=== PATIENT | female | born 1990 | race Caucasian/White ===

== ENCOUNTER → 2018-03-08 18:43 | Outpatient (CLI) | payer OTHER, SELFPAY ==
[2018-03-13 16:58] LABS: HPV Reflexed? NOT INDICATED
== END ==
PROVIDERS: Family Provider Family Medicine; PCP Family Medicine; Visit Provider Obstetrics & Gynecology
DX: Z12.4 Encounter for screening for malignant neoplasm of cervix (principal); Z12.72 Encounter for screening for malignant neoplasm of vagina
CPT/HCPCS: 88175; G0145

== ENCOUNTER → 2019-10-03 09:33 | Outpatient (CLI) | payer OTHER, SELFPAY ==
[2019-10-03 10:52] LABS: Follicle Stimulating Hormone 5.3 mIU/mL; Prolactin 8.1 ng/mL; Thyroid Stim Hormone (TSH) 1.07 uIU/mL (0.358-3.74)
== END ==
PROVIDERS: Family Provider Family Medicine; PCP Family Medicine; Visit Provider Obstetrics & Gynecology
DX: N91.2 Amenorrhea, unspecified (principal); N92.6 Irregular menstruation, unspecified; R63.5 Abnormal weight gain
CPT/HCPCS: 36415; 83001; 83002; 84146; 84443

== ENCOUNTER → 2020-06-30 14:54 | Outpatient (CLI) | payer OTHER, SELFPAY ==
[2017-09-01 23:33] VITALS: BMI 41.8
[2020-06-30 16:33] LABS: Progesterone Level 1.07 ng/mL (See Comment)
[2020-06-30 16:35] LABS: Hemoglobin A1c 5.7 % (3.8-5.6)
[2020-06-30 16:38] LABS: AST(SGOT) 17 U/L (15-37); Alanine Aminotransfer ALT/SGPT 37 U/L (13-56); Albumin, Serum 3.8 g/dL (3.2-5.0); Alkaline Phosphatase 77 U/L (45-117); Anion Gap 6 (5-15); BUN 12 mg/dL (7-18); BUN/Creat Ratio 15.4 RATIO (10-20); Calcium,Total 8.5 mg/dL (8.5-10.1); Chloride 103 mmol/L (98-107); Creatinine, Serum 0.78 mg/dL (0.55-1.02); EST Glomerular Filtration Rate 92 mL/min (>60); Est Glom Filt Rate - Afr Amer 112 mL/min (>60); Globulin 3.7 g/dL (2.2-4.2); Glucose 90 mg/dL (74-106); Potassium 3.7 mmol/L (3.5-5.1); Protein, Total 7.5 g/dL (6.4-8.2); Sodium Level 138 mmol/L (136-145); Thyroid Stim Hormone (TSH) 1.13 uIU/mL (0.358-3.74)
== END ==
PROVIDERS: PCP Family Medicine; Visit Provider Obstetrics & Gynecology
DX: E28.2 Polycystic ovarian syndrome (principal); Z51.81 Encounter for therapeutic drug level monitoring; F41.1 Generalized anxiety disorder; E88.81 Metabolic syndrome and other insulin resistance
CPT/HCPCS: 36415; 80053; 83036; 84144; 84403; 84443

== ENCOUNTER → 2020-08-07 08:42 | Outpatient (CLI) | payer OTHER, SELFPAY ==
[2020-08-07 12:56] LABS: Progesterone Level 11.26 ng/mL (See Comment)
== END ==
PROVIDERS: PCP Family Medicine; Visit Provider Obstetrics & Gynecology
DX: E28.2 Polycystic ovarian syndrome (principal); Z51.81 Encounter for therapeutic drug level monitoring
CPT/HCPCS: 36415; 84144

== ENCOUNTER → 2020-09-01 14:08 | Outpatient (CLI) | payer OTHER, SELFPAY ==
[2020-09-01 17:30] LABS: Absolute Lymphocyte Count 2.08 X10^3/uL (0.83-4.51); Absolute Neutrophil Count 6.9 X10^3/uL (2.0-7.7); Basophil# 0.05 X10^3/uL; Basophil% 0.5 % (0-1); Eosinophil# 0.09 X10^3/uL; Eosinophils% 0.9 % (0-5); Hematocrit 37.3 % (37-47); Hemoglobin 12.2 g/dL (12.0-15.0); Lymphocyte # 2.08 X10^3/ul (4.0); Lymphocyte % 21.7 % (19-41); Mean Corp Hgb Conc 32.7 g/dL (32-36); Mean Corpuscular Hgb 28.4 pg (27.0-32.0); Mean Corpuscular Volume 86.9 fL (81-99); Mean Platelet Vol. 10.8 fl (6.2-12.0); Monocyte# 0.48 X10^3/uL; NRBC Flagged by Analyzer 0 % (0-5); Neutrophil # 6.85 X10^3/uL (2.7-7.7); Neutrophil % 71.6 % (47-70); Platelet Count 224 K/mm3 (150-450); RBC Distribution Width CV 13.5 % (11.6-14.6); RBC Distribution Width SD 42.7 fl (35.1-43.9); Red Blood Count 4.29 M/mm3 (4.2-5.4); White Blood Count 9.6 K/mm3 (4.4-11.0)
[2020-09-02 10:38] LABS: HIV - WCH Non-Reactive (Nonreactive); Hepatitis B Surface Antigen Non-Reactive (Nonreactive); Hepatitis C Antibody Non-Reactive (Nonreactive); Rubella IgG 53.4 IU/mL
[2020-09-04 03:03] LABS: Prenatal RPR NONREACTIVE (NONREACTIVE)
[2020-09-04 03:07] LABS: Chlamydia By Nucleic Acid AMP Negative (Negative)
[2020-09-04 08:26] LABS: Gonococcus By Nucleic Acid AMP Negative (Negative)
== END ==
PROVIDERS: PCP Family Medicine; Visit Provider Obstetrics & Gynecology
DX: Z34.81 Encounter for supervision of other normal pregnancy, first trimester (principal); Z11.3 Encounter for screening for infections with a predominantly sexual mode of transmission
CPT/HCPCS: 36415; 85025; 86703; 86762; 86803; 87086; 87088; 87340; 87491; 87591

== ENCOUNTER → 2020-11-04 14:47 | Outpatient (CLI) | payer OTHER, SELFPAY ==
[2017-09-01 23:33] VITALS: BMI 41.8
[2020-11-04 16:03] LABS: Glucose Challenge Gest 1H 50g 126 mg/dL (70-140)
== END ==
PROVIDERS: PCP Family Medicine; Visit Provider Obstetrics & Gynecology
DX: O30.009 Twin pregnancy, unspecified number of placenta and unspecified number of amniotic sacs, unspecified trimester (principal); Z3A.00 Weeks of gestation of pregnancy not specified
CPT/HCPCS: 36415; 82950

== ENCOUNTER → 2020-12-29 12:52 | Outpatient (CLI) | payer OTHER, SELFPAY ==
[2017-09-01 23:33] VITALS: BMI 41.8
[2020-12-29 13:47] LABS: Hematocrit 30.8 % (37-47); Hemoglobin 10.3 g/dL (12.0-15.0); Mean Corp Hgb Conc 33.4 g/dL (32-36); Mean Corpuscular Hgb 30.2 pg (27.0-32.0); Mean Corpuscular Volume 90.3 fL (81-99); Mean Platelet Vol. 10.3 fl (6.2-12.0); Platelet Count 210 K/mm3 (150-450); RBC Distribution Width CV 13.5 % (11.6-14.6); RBC Distribution Width SD 44.2 fl (35.1-43.9); Red Blood Count 3.41 M/mm3 (4.2-5.4); White Blood Count 9.4 K/mm3 (4.4-11.0)
[2020-12-29 13:48] LABS: Glucose Challenge Gest 1H 50g 180 mg/dL (70-140)
== END ==
PROVIDERS: PCP Family Medicine; Visit Provider Obstetrics & Gynecology
DX: O30.009 Twin pregnancy, unspecified number of placenta and unspecified number of amniotic sacs, unspecified trimester (principal); Z3A.00 Weeks of gestation of pregnancy not specified
CPT/HCPCS: 36415; 82950; 85027

== ENCOUNTER → 2021-01-07 06:55 | Outpatient (CLI) | payer OTHER, SELFPAY ==
[2021-01-07 07:53] LABS: Glucose GTT-Gestation. Fasting 90 mg/dL (<105)
[2021-01-07 08:35] LABS: Glucose GTT-Gestational 1 Hr 194 mg/dL (<190)
[2021-01-07 09:46] LABS: Glucose GTT-Gestational 2 Hr 133 mg/dL (<165)
[2021-01-07 11:10] LABS: Glucose GTT-Gestational 3 Hr 128 L (<145)
== END ==
PROVIDERS: PCP Family Medicine; Referring Provider Obstetrics & Gynecology; Visit Provider Obstetrics & Gynecology
DX: O24.912 Unspecified diabetes mellitus in pregnancy, second trimester (principal); Z3A.00 Weeks of gestation of pregnancy not specified
CPT/HCPCS: 36415; 82951; 82952

== ENCOUNTER 2021-02-05 10:10 | Outpatient (CLI) | payer OTHER, SELFPAY ==
[2021-02-05 10:36] VITALS: PULSE 91; O2SAT 98
[2021-02-05 10:40] VITALS: BP 129/69; PULSE 92
[2021-02-05 11:58] VITALS: BMI 42.7
--- NOTE | 2021-02-05 12:24 | PN.OBGYN_ITS ---
Subjective: Resting comfortably in bed. - Physical Exam Vitals/I&O's: Vital Signs Pulse BP Pulse Ox 92 129/69 H 98 02/05/21 10:40 02/05/21 10:40 02/05/21 10:36 Weight: 234 lb Body Mass Index (BMI) 42.7 General: Alert, Oriented x3, Cooperative, No apparent distress HEENT: Atraumatic, PERRLA, Normocephalic Oral: Moist Mucosa Neck: Supple Abdomen: Soft, Non Tender, Gravid Extremities: No clubbing, No cyanosis, No edema Neurological: Neuro grossly intact Psych/Mental Status: Normal Affect, Appropriate, Alert and oriented to time, place, person, mood and affect Medical Necessity - Tobacco Use Smoking Status: Never smoker Assessment/Plan Patient seen by [facility] ultrasound here in [place] today for BPP with di-ditwins IUGR of baby B. BPP's 8 out of 8 for both babies but baby A with heart rate in the 180s on ultrasound. Sent to labor and delivery after discussion in my office about the ultrasound findings including the heart rate. Here in labor and delivery NST: Baby A 150/moderate variability/positive accelerations/negative decelerations baby B 145/moderate variabilit/positive accelerations/negative decelerations. Baby A does have moments of elevated heart rates above 160s but this is during accelerations, did have prolonged acceleration upon initial monitoring but overall baseline 150s and reassuring heart tones. NST reactive for baby A and for baby B. All reassuring, heart tone noted on ultrasound likely during acceleration. Educated patient on the results, discussed movement. Discharge home. To follow-up with BPP on 02/09/2021 in my office
--- NOTE | 2021-02-05 12:32 | OB.TRI.HP_ITS ---
History of Present Illness Date of Service: 02/05/21 Was patient seen by the physician?: Yes Reason For Visit: EXTENDED MONITORING Date of Service: 02/05/21 Final ÁLVARO: 04/23/21 Final ÁLVARO Source: US <20 weeks Gestational age: 29 Weeks and 0 Days History of Present Illness: Resting comfortably in bed. Allergies Sulfa (Sulfonamide Antibiotics) Allergy (Verified 09/01/17 23:31) Hives Physical Exam Vitals: Vital Signs Pulse BP Pulse Ox 92 129/69 H 98 02/05/21 10:40 02/05/21 10:40 02/05/21 10:36 General: Alert, Oriented x3, Cooperative, No apparent distress HEENT: Atraumatic, Normocephalic Abdomen: Soft, Non Tender, Gravid Neurological: Neuro grossly intact NST - FHR Rate Baby A Baseline: 150 Variability:: Moderate Accelerations:: 10 x 10 Decelerations:: None NST Reactive:: Yes Uterine Activity:: quiet - FHR Rate Baby B Baseline: 145 Variability:: Moderate Accelerations:: 10 x 10 Decelerations:: None NST Reactive:: Yes Uterine Activity:: quiet Impression/Plan Patient seen by [facility] ultrasound here in [place] today for BPP with di-ditwins IUGR of baby B. BPP's 8 out of 8 for both babies but baby A with heart rate in the 180s on ultrasound. Sent to labor and delivery after discussion in my office about the ultrasound findings including the heart rate. Here in labor and delivery NST: Baby A 150/moderate variability/positive accelerations/negative decelerations baby B 145/moderate variabilit/positive accelerations/negative decelerations. Baby A does have moments of elevated heart rates above 160s but this is during accelerations, did have prolonged acceleration upon initial monitoring but overall baseline 150s and reassuring heart tones. NST reactive for baby A and for baby B. All reassuring, heart tone noted on ultrasound likely during acceleration. Educated patient on the results, discussed movement. Discharge home. To follow-up with BPP on 02/09/2021 in my office
== END 2021-02-05 12:45 | disposition home or self-care (01) ==
LOC: WPOUT 10:35 → WP 10:35
PROVIDERS: PCP Family Medicine; Referring Provider Obstetrics & Gynecology; Visit Provider Obstetrics & Gynecology
DX: O36.8331 Maternal care for abnormalities of the fetal heart rate or rhythm, third trimester, fetus 1 (principal); O30.043 Twin pregnancy, dichorionic/diamniotic, third trimester; Z3A.29 29 weeks gestation of pregnancy
CPT/HCPCS: 59025; 59050; 99218; G0378

== ENCOUNTER → 2021-09-17 11:07 | Outpatient (CLI) | payer OTHER, SELFPAY | PROVIDERS: PCP Family Medicine; Referring Provider Family Medicine; Visit Provider Family Medicine | DX: J06.9 Acute upper respiratory infection, unspecified (principal) | CPT/HCPCS: 87633 ==

== ENCOUNTER → 2021-11-12 09:04 | Outpatient (CLI) | payer OTHER, SELFPAY ==
[2021-11-12 10:48] LABS: Hemoglobin A1c 5.2 % (3.8-5.6)
[2021-11-12 10:57] LABS: AST(SGOT) 31 U/L (15-37); Alanine Aminotransfer ALT/SGPT 58 U/L (13-56); Albumin, Serum 3.8 g/dL (3.2-5.0); Alkaline Phosphatase 75 U/L (45-117); Anion Gap 8 (5-15); BUN 12 mg/dL (7-18); BUN/Creat Ratio 15.5 RATIO (10-20); Calcium,Total 8.9 mg/dL (8.5-10.1); Chloride 103 mmol/L (98-107); Cholesterol 228 mg/dL (200); Creatinine, Serum 0.78 mg/dL (0.55-1.02); EST Glomerular Filtration Rate 92 mL/min (>60); Est Glom Filt Rate - Afr Amer 111 mL/min (>60); Glucose 90 mg/dL (74-106); High Density Lipoprotein 39 mg/dL; Potassium 4.1 mmol/L (3.5-5.1); Protein, Total 7.8 g/dL (6.4-8.2); Sodium Level 136 mmol/L (136-145); Thyroid Stim Hormone (TSH) 1.31 uIU/mL (0.358-3.74); Triglycerides 171 mg/dL; Very Low Density Lipoprotein 34 mg/dL (5-40)
== END ==
PROVIDERS: PCP Family Medicine; Visit Provider Family Medicine
DX: E88.81 Metabolic syndrome and other insulin resistance (principal)
CPT/HCPCS: 36415; 80053; 80061; 83036; 84443

== ENCOUNTER 2021-11-23 12:15 | Outpatient (CLI) | payer OTHER, SELFPAY ==
[2021-11-25 15:45] LABS: HPV APTIMA, High Risk Negative (Negative)
== END 2021-11-23 23:59 | disposition short-term general hospital (02) ==
LOC: LABSPEC 12:18
PROVIDERS: PCP Family Medicine; Visit Provider Obstetrics & Gynecology
DX: Z12.4 Encounter for screening for malignant neoplasm of cervix (principal)
CPT/HCPCS: 87624; 88175; G0145

== ENCOUNTER → 2024-08-09 | Outpatient (CLI) | payer OTHER, SELFPAY ==
[2024-08-09 17:58] LABS: ALB/GLOB Ratio 0.9 RATIO (0.9-2.4); AST(SGOT) 19 U/L (15-37); Alanine Aminotransfer ALT/SGPT 34 U/L (13-56); Albumin, Serum 3.7 g/dL (3.2-5.0); Alkaline Phosphatase 77 U/L (45-117); Anion Gap 4 (5-15); BUN 14 mg/dL (7-18); BUN/Creat Ratio 16.5 RATIO (10-20); Calcium,Total 9.2 mg/dL (8.5-10.1); Chloride 103 mmol/L (98-107); Cholesterol 244 mg/dL (200); Creatinine, Serum 0.85 mg/dL (0.55-1.02); EST Glomerular Filtration Rate 82 mL/min (>60); Est Glom Filt Rate - Afr Amer 99 mL/min (>60); Globulin 4.1 g/dL (2.2-4.2); Glucose 100 mg/dL (74-106); High Density Lipoprotein 42 mg/dL; Potassium 4.1 mmol/L (3.5-5.1); Protein, Total 7.8 g/dL (6.4-8.2); Sodium Level 136 mmol/L (136-145)
[2024-08-09 18:08] LABS: Hemoglobin A1c 5.6 % (3.8-5.6)
== END | disposition home or self-care (01) ==
LOC: MTLAB 16:34
PROVIDERS: PCP Family Medicine; Referring Provider Family Medicine; Visit Provider Family Medicine
DX: Z13.220 Encounter for screening for lipoid disorders (principal)
CPT/HCPCS: 36415; 80053; 82465; 83036; 83718

== ENCOUNTER → 2025-08-15 | Outpatient (CLI) | payer OTHER, SELFPAY ==
[2025-08-15 17:42] LABS: Hematocrit 40.1 % (37-47); Hemoglobin 13.5 g/dL (12.0-15.0); Immature Granulocytes Count 0.020 X10^3/uL (0.0-0.0); Mean Corp Hgb Conc 33.7 g/dL (32-36); Mean Corpuscular Volume 83.0 fL (81-99); Mean Platelet Vol. 10.2 fl (6.2-12.0); NRBC Flagged by Analyzer 0 % (0-5); Platelet Count 255 K/mm3 (150-450); RBC Distribution Width CV 12.8 % (11.6-14.6); RBC Distribution Width SD 38.7 fl (35.1-43.9); Red Blood Count 4.83 M/mm3 (4.2-5.4); White Blood Count 7.2 K/mm3 (4.4-11.0)
[2025-08-15 18:05] LABS: AST(SGOT) 22 U/L (<=31); Alanine Aminotransfer ALT/SGPT 23 U/L (<=34); Albumin, Serum 4.4 g/dL (3.5-5.0); Alkaline Phosphatase 73 U/L (35-104); Anion Gap 15 (5-15); BUN 11 mg/dL (4-19); BUN/Creat Ratio 12.8 RATIO (10-20); Calcium,Total 9.3 mg/dL (7.6-11.0); Carbon Dioxide 21.7 mmol/L (21.0-32.0); Chloride 99 mmol/L (98-108); Cholesterol 225 mg/dL (<=200); Globulin 3.2 g/dL (2.2-4.2); Glucose 151 mg/dL (70-99); Low Density Lipoprotein Calc. 146 mg/dL; Potassium 3.8 mmol/L (3.3-5.1); Triglycerides 195 mg/dL; Very Low Density Lipoprotein 39 mg/dL (5-40); cholesterol:hdl ratio screen 5.63
== END | disposition home or self-care (01) ==
LOC: MFPLAB 15:55
PROVIDERS: PCP Family Medicine; Referring Provider Family Medicine; Visit Provider Family Medicine
DX: Z00.00 Encounter for general adult medical examination without abnormal findings (principal)
CPT/HCPCS: 36415; 80053; 80061; 83036; 85025